=== PATIENT | male | born 1985 | race Caucasian/White ===

== ENCOUNTER 2019-05-10 15:32 | Emergency (ER) | payer OTHER, MEDICAID ==
[~2019-05-10 15:32] MED LIST: BENA10TA17 PO
--- NOTE | 2019-05-10 15:37 | NUR ---
LEFT WITHOUT BEING SEEN.
== END 2019-05-10 15:37 | disposition left against medical advice (07) ==
LOC: MED 15:32
DX: Z53.21 Procedure and treatment not carried out due to patient leaving prior to being seen by health care provider (principal)

== ENCOUNTER 2019-09-18 00:53 | Emergency (ER) | payer OTHER, MEDICAID ==
[~2019-09-18] VITALS: Ht 182.9 cm; Wt 166.5 kg
[~2019-09-18 00:53] MED LIST changes: -BENA10TA17 PO; +BENA10TA60 PO
[2019-09-18 01:07] VITALS: BP 115/79
[2019-09-18] MEDS ORDERED: CLINDAMYCIN 600 MG in DEXTROSE 5% 50 ML IV ONE (01:25)
[2019-09-18] MEDS ORDERED: NACL 0.9% 1,000 ML IV ONE (01:25)
[2019-09-18] MEDS ORDERED: CLINDAMYCIN 600 MG/4 ML VIAL ONE (01:41)
[2019-09-18 01:52] LABS: BASOPHILS # (AUTO) 0.1 K/uL (0.00-0.22); BASOPHILS % (AUTO) 0.3 % (0.0-2.0); EOSINOPHILS % (AUTO) 0.3 % (0.0-4.0); HEMATOCRIT 46.4 % (36-52); HEMOGLOBIN 15.6 g/dL (12.0-18.0); LYMPHOCYTES # (AUTO) 1.1 K/uL (2.0-11.5); LYMPHOCYTES % (AUTO) 7.2 % (20.5-51.1); MEAN CORPUSCULAR HEMOGLOBIN 28 pg (27-31); MEAN CORPUSCULAR HGB CONC 34 g/dL (33-37); MEAN CORPUSCULAR VOLUME 83.3 fL (80-94); MONOCYTES # (AUTO) 1.4 K/uL (0.8-1.0); MONOCYTES % (AUTO) 9.7 % (1.7-9.3); NEUTROPHILS # (AUTO) 12.2 K/uL (1.8-7.7); NEUTROPHILS % (AUTO) 82.5 % (42.2-75.2); PLATELET COUNT (AUTO) 187 K/uL (140-450); RED BLOOD CELL COUNT(AUTO) 5.57 MIL/uL (4.20-6.10); RED CELL DISTRIBUTION WIDTH 14.3 % (11.6-13.7); WHITE BLOOD COUNT (AUTO) 14.8 K/uL (4.8-10.8)
[2019-09-18 02:06] LABS: ALBUMIN 3.3 g/dL (3.4-5.0); ANION GAP 14.3 (8-16); CARBON DIOXIDE 25.6 mmol/L (21-32); CREATININE 1.2 mg/dL (0.6-1.3); POTASSIUM 3.9 mmol/L (3.5-5.1); TOTAL BILIRUBIN 0.8 mg/dL (0.0-1.0)
[2019-09-18 04:05] VITALS: BP 102/75
== END 2019-09-18 04:04 | disposition home or self-care (01) ==
LOC: MED 00:53
DX: L03.115 Cellulitis of right lower limb (principal); E11.65 Type 2 diabetes mellitus with hyperglycemia; I10 Essential (primary) hypertension; Z79.899 Other long term (current) drug therapy
CPT/HCPCS: 36415; 80053; 83605; 85025; 87040; 93971; 96365; 99284; J3490; Q0092; J7030